=== PATIENT | male | born 1995 | race Caucasian/White ===

== ENCOUNTER 2025-01-20 08:41 | Outpatient (CLI) | payer BC, OTHER ==
[2025-01-20] MEDS ORDERED: Gadobenate Dimeglumine 2 ML, Sodium Chloride 0.9% 250 ML 10 ML, Iopamidol 8 ML, Lidocai... FS ONE (08:45)
[2025-01-20] MEDS ORDERED: Gadobenate Dimeglumine 529 MG/1 ML (5 ML SDV) ONE (10:11)
[2025-01-20] MEDS ORDERED: Iopamidol 300 61% 100 ML VIAL FS ONE (10:11)
== END 2025-01-20 08:42 | disposition home or self-care (01) ==
LOC: CSHRAD 08:41
PROVIDERS: ATTEND Student in an Organized Health Care Education/Training Program
DX: M24.811 Other specific joint derangements of right shoulder, not elsewhere classified (principal); M19.011 Primary osteoarthritis, right shoulder
CPT/HCPCS: 23350; 77002; A9577; J0166; J7050; Q9967